=== PATIENT | female | born 1935 | race Caucasian/White ===

== ENCOUNTER → 2018-06-10 08:05 | Outpatient (CLI) | payer MEDICARE, OTHER, SELFPAY ==
--- NOTE | 2018-06-10 08:09 | DI.MRI.S_ITS ---
PROCEDURE: MR CERVICAL SPINE WO CON INDICATIONS: Neck pain status post cervical fusion TECHNIQUE: Noncontrast sagittal T1 spin echo and T2 fast spin echo, sagittal STIR, foraminal oblique sagittal T2 fast spin echo, and axial gradient echo or T2 fast spin echo through the cervical spine. COMPARISON: None. FINDINGS: Image quality: Excellent. Alignment and Curvature: There is mild anterolisthesis at C3-C4. Bone Marrow: Marrow demonstrates normal overall signal. Spinal Cord: Visualized spinal cord has normal size and signal. No cerebellar tonsillar herniation. Paraspinous Soft Tissues: No paravertebral masses. Prevertebral soft tissues are normal in thickness. Postoperative changes are seen, with anterior fixation hardware C4-C7. Prominent portions of the posterior elements have been removed. Disc spacers are seen throughout the fused region. There is associated susceptibility artifact. C2-C3: The disc height is well-preserved. Loss of disc signal is seen at this level. There is moderate left-sided facet hypertrophy seen. No neural foraminal or central canal narrowing are seen. C3-C4: Moderate loss of disc height is seen. Loss of disc signal is seen. There is moderate to prominent facet hypertrophy seen. There is moderate right-sided and moderate to severe left-sided neural foraminal narrowing seen. No significant central canal narrowing is seen. C4-C5: Postoperative changes are seen at this level. No neural foraminal or central canal narrowing are seen. C5-C6: There are postoperative changes at this level. Mild to moderate disc osteophyte complex is seen. Mild to moderate facet hypertrophy is seen. Moderate bilateral neural foraminal narrowing is seen. No central canal narrowing is seen. C6-C7: Postoperative changes are seen at this level. A mild degree of generalized disc osteophyte complex is seen. Mild facet joint hypertrophy is seen. Moderate bilateral neural foraminal narrowing is seen. No significant central canal narrowing is seen. C7-T1: The disc height is well-preserved. Loss of disc signal is seen at this level. A mild degree of generalized disc osteophyte complex is seen. Mild bilateral neural foraminal narrowing is seen. No significant central canal narrowing is seen. IMPRESSION: Extensive postoperative changes are seen, without a complication observed. Multiple levels of degenerative change are seen. Dictated by: Jah Niño M.D. on 06/10/2018 at 9:19 Approved by: Jah Niño M.D. on 06/10/2018 at 9:28
== END ==
PROVIDERS: PCP Internal Medicine; Visit Provider Physical Medicine & Rehabilitation
DX: M54.2 Cervicalgia (principal); M47.812 Spondylosis without myelopathy or radiculopathy, cervical region; Z98.1 Arthrodesis status
CPT/HCPCS: 72141

== ENCOUNTER → 2018-07-12 08:37 | Outpatient (CLI) | payer MEDICARE, OTHER, SELFPAY ==
--- NOTE | 2018-07-12 08:40 | DI.RAD.S_ITS ---
PROCEDURE: XR CERVICAL SPINE 4V OR 5V INDICATIONS: Neck pain status post cervical fusion TECHNIQUE: 5 views of the cervical spine acquired. COMPARISON: [facility], CR, XR CERVICAL SPIN LAT FL EX 3VW, 01/04/2016, 15:26. FINDINGS: Bones: No fractures or dislocations to the C7 level. Oblique images demonstrate no bony foraminal stenoses. Status post C4-C7 ACDF with interbody grafts. Hardware appears intact. Lucency adjacent to the bone metal interface of the screws, in particular at C7 and C6. This appears progressed since 01/04/16. Diffuse cervical spondylosis. Grade 1 anterolisthesis C3 and C4. No definite change in minimal C3-C4 disc space narrowing. Multilevel facet arthropathy. Mild to moderate C7-T1 and T1-T2 disc degeneration.Carotid atherosclerosis is noted, left greater than right. On the left, mild C3-C4 bony foraminal narrowing. On the right, no definite high-grade bony foraminal stenosis IMPRESSION: Status post C4-C7 ACDF with interbody grafts. Since 01/04/16 there is development of prominent lucencies at the bone metal interface of the screws, suggestive of hardware loosening or infection. Please correlate clinically. Diffuse cervical spondylosis and multilevel facet arthropathy. Grade 1 anterolisthesis of C3 on C4. Dictated by: Roderick Greco M.D. on 07/12/2018 at 9:28 Approved by: Roderick Greco M.D. on 07/12/2018 at 9:33
== END ==
PROVIDERS: PCP Internal Medicine; Visit Provider Physical Medicine & Rehabilitation
DX: M54.2 Cervicalgia (principal); M47.812 Spondylosis without myelopathy or radiculopathy, cervical region; M43.12 Spondylolisthesis, cervical region; Z98.1 Arthrodesis status
CPT/HCPCS: 72050; 99214

== ENCOUNTER → 2020-01-26 10:17 | Outpatient (CLI) | payer MEDICARE, OTHER, SELFPAY ==
--- NOTE | 2020-01-26 10:20 | DI.RAD.S_ITS ---
PROCEDURE: XR LUMBAR SPINE MIN 4V INDICATIONS: PAIN TECHNIQUE: 5 views of the lumbar spine were acquired. COMPARISON: None. FINDINGS: Bones: 5 nonrib-bearing vertebrae are present. There is grade 1 anterolisthesis of L4 on L5 and L5 on S1. Degenerative endplate changes and bilateral facet arthrosis at L3-4 through L5-S1 levels are seen. No vertebral body compression fractures. No suspicious bony lesions. Soft tissues: Overlying bowel gas pattern is normal. No suspicious soft tissue calcifications. Oblique images: No definite pars defects. Bilateral bony foraminal stenosis at L4-5 and L5-S1 levels are seen. IMPRESSION: Grade 1 anterolisthesis of L4 on L5 and L5 on S1. No definite pars defect is seen. Degenerative disc disease in mid to lower lumbar spine with suggestion of bilateral bony foraminal stenosis at L4-5 and L5-S1 levels. No acute compression fracture. Dictated by: Chi Miranda M.D. on 01/26/2020 at 13:34 Approved by: Chi Miranda M.D. on 01/26/2020 at 13:59
--- NOTE | 2020-01-26 10:20 | DI.RAD.S_ITS ---
PROCEDURE: XR CERVICAL SPINE 4V OR 5V INDICATIONS: pain TECHNIQUE: 5 views of the cervical spine acquired. COMPARISON: [facility], CR, XR CERVICAL SPINE 4V OR 5V, 07/12/2018, 8:42. FINDINGS: Bones: Patient is status post anterior fusion at C4 through C7 level. Grade 1 anterolisthesis of C3 on C4 is again seen unchanged from prior study. No acute compression fracture. Previously described increased radiolucency surrounding surgical screws particularly at C6 and C7 levels are again seen, not significantly changed from 2019 study. Oblique images demonstrate bilateral bony foraminal stenosis at C6-7 level. Soft tissues: No prevertebral soft tissue swelling. IMPRESSION: 1. Grade 1 anterolisthesis of C3 on C4 unchanged from prior study. No acute compression fracture or new area of spondylolisthesis. 2. Prior fusion of C4 through C7 vertebral bodies with persistent increased lucency surrounding fixation screws particularly at C6 and C7 levels concerning for hardware loosening. 3. Suggestion of mild bilateral bony foraminal stenosis at C6-7 level. Dictated by: Chi Miranda M.D. on 01/26/2020 at 13:29 Approved by: Chi Miranda M.D. on 01/26/2020 at 13:32
== END ==
PROVIDERS: PCP Internal Medicine; Referring Provider Internal Medicine; Visit Provider Physical Medicine & Rehabilitation
DX: M47.812 Spondylosis without myelopathy or radiculopathy, cervical region (principal); M43.12 Spondylolisthesis, cervical region; M48.02 Spinal stenosis, cervical region; M43.16 Spondylolisthesis, lumbar region; M43.17 Spondylolisthesis, lumbosacral region; M51.36 Other intervertebral disc degeneration, lumbar region; M17.10 Unilateral primary osteoarthritis, unspecified knee; Z98.1 Arthrodesis status
CPT/HCPCS: 72050; 72110; 99213

== ENCOUNTER → 2020-04-21 09:01 | Outpatient (CLI) | payer MEDICARE, OTHER, SELFPAY ==
--- NOTE | 2020-04-21 09:03 | DI.RAD.S_ITS ---
PROCEDURE: XR SHOULDER LT MIN 2V INDICATIONS: left shoulder pain TECHNIQUE: 3 views of the shoulder were acquired. COMPARISON: None. FINDINGS: Bones: No fracture. Severe AC and glenohumeral joint degeneration. Anatomic alignment. Soft tissues: No suspicious soft tissue calcifications. IMPRESSION: Severe left shoulder joint degeneration. Dictated by: Roderick Greco M.D. on 04/21/2020 at 11:02 Approved by: Roderick Greco M.D. on 04/21/2020 at 11:03
== END ==
PROVIDERS: PCP Internal Medicine; Referring Provider Physical Medicine & Rehabilitation; Visit Provider Physical Medicine & Rehabilitation
DX: M75.42 Impingement syndrome of left shoulder (principal); M17.10 Unilateral primary osteoarthritis, unspecified knee; M48.02 Spinal stenosis, cervical region; M43.16 Spondylolisthesis, lumbar region; M19.012 Primary osteoarthritis, left shoulder
CPT/HCPCS: 73030; 99213

== ENCOUNTER → 2023-02-01 12:59 | Outpatient (CLI) | payer MEDICARE, OTHER, SELFPAY ==
--- NOTE | 2023-02-01 13:01 | DI.RAD.S_ITS ---
PROCEDURE: XR LUMBAR SPINE MIN 4V INDICATIONS: low back bilateral hip pain TECHNIQUE: 5 views of the lumbar spine were acquired, including bilateral oblique views. COMPARISON: [facility], , XR LUMBAR SPINE MIN 4V, 01/26/2020, 10:10. FINDINGS: Bones: 5 nonrib-bearing vertebrae are present. Again seen is grade 1 anterolisthesis of L4 on L5 and L5 on S1. Diffusely decreased osseous mineralization. Facet arthropathy of the lower lumbar spine. Disc height loss is most pronounced at L4-5. No vertebral body compression fractures. No suspicious bony lesions. Soft tissues: Overlying bowel gas pattern is normal. No suspicious soft tissue calcifications. Atherosclerotic vascular calcifications. Oblique images: No definite pars defects. IMPRESSION: Again seen is grade 1 anterolisthesis of L4 on L5 and L5 on S1 without definite pars interarticularis defect. Degenerative changes of the lower lumbar spine. Dictated by: Fabián Swift M.D. on 02/01/2023 at 13:44 Approved by: Fabián Swift M.D. on 02/01/2023 at 13:46
== END ==
PROVIDERS: PCP Internal Medicine; Referring Provider Physical Medicine & Rehabilitation; Visit Provider Physical Medicine & Rehabilitation
DX: M25.551 Pain in right hip (principal); M25.552 Pain in left hip; M54.50 Low back pain, unspecified; M43.16 Spondylolisthesis, lumbar region
CPT/HCPCS: 72110

== ENCOUNTER → 2023-03-05 10:56 | Outpatient (CLI) | payer MEDICARE, OTHER, SELFPAY ==
--- NOTE | 2023-03-05 11:16 | DI.MRI.S_ITS ---
PROCEDURE: MR LUMBAR SPINE WO CON INDICATIONS: Spinal stenosis TECHNIQUE: Noncontrast sagittal T1 spin echo and T2 fast echo, sagittal STIR, and T2 fast spin echo through the lumbar spine. In cases with scoliosis, additional coronal T2 fast spin echo may be performed. COMPARISON: [facility], CR, XR LUMBAR SPINE MIN 4V, 02/01/2023, 13:08. FINDINGS: Image quality: Excellent. Alignment and Curvature: 7 mm anterolisthesis of L4 on L5. 6 mm anterolisthesis of L5 on S1. Bone Marrow: Marrow is of normal overall signal. No acute vertebral body compression fractures. Spinal Cord: Conus medullaris terminates at the L1-L2 level. Visualized cord demonstrates normal signal and size. Paraspinous Soft Tissues: No paravertebral masses. T12-L1: Minimal disc bulge. No canal stenosis or foraminal stenosis. L1-L2: Disc bulge. No canal stenosis or foraminal stenosis. L2-L3: Mild disc bulge. Mild facet hypertrophy. No canal stenosis or foraminal stenosis. L3-L4: Disc bulge. Facet and ligament hypertrophy. Mild canal stenosis. Mild bilateral foraminal stenosis. L4-L5: Anterolisthesis of L4 on L5 measures 7 mm. Posterior disc bulge. Prominent facet hypertrophy. Mild canal stenosis. Mild bilateral foraminal stenosis. L5: There is a prominent foot right-sided facet joint cyst in the canal, likely arising from the right L4-L5 facet joint, resulting in moderate canal stenosis at the level of L5. L5-S1: Anterolisthesis of L5 on S1 measures 6 mm. Posterior disc bulge. Exuberant facet hypertrophy. No canal stenosis. Mild right foraminal narrowing. Moderate to severe left foraminal narrowing with a mild degree of left L5 foraminal nerve root impingement. IMPRESSION: 1. Multilevel facet arthropathy, prominent at L4-L5 and L5-S1. 2. At the level of L3-L4 and L4-L5, there is mild canal stenosis. 3. At the level of L5, there is moderate canal stenosis secondary to a right-sided facet joint cyst, likely arising from the right L4-L5 facet joint. 4. There is moderate to severe left foraminal narrowing at L5-S1 with a mild degree of left L5 foraminal nerve root impingement. Dictated by: Jalil Grewal M.D. on 03/05/2023 at 19:00 Approved by: Jalil Grewal M.D. on 03/05/2023 at 19:08
== END ==
PROVIDERS: PCP Internal Medicine; Referring Provider Physical Medicine & Rehabilitation; Visit Provider Physical Medicine & Rehabilitation
DX: M43.16 Spondylolisthesis, lumbar region (principal); M47.816 Spondylosis without myelopathy or radiculopathy, lumbar region; M47.817 Spondylosis without myelopathy or radiculopathy, lumbosacral region; M48.061 Spinal stenosis, lumbar region without neurogenic claudication; M48.07 Spinal stenosis, lumbosacral region; M53.86 Other specified dorsopathies, lumbar region
CPT/HCPCS: 72148

== ENCOUNTER 2023-08-09 09:28 | Outpatient (CLI) | payer MEDICARE, OTHER, SELFPAY ==
[2023-08-09] VITALS (11 sets, daily range): BP systolic 131–193; BP diastolic 58–80; PULSE 49–58; RESP 12–22; TEMP 36.4; O2SAT 96–100
--- NOTE | 2023-08-09 10:15 | DI.RAD.S_ITS ---
PROCEDURE: PAIN L INTERLAMINAR/CAUDAL INJ INDICATIONS: radiculopathy COMPARISON: None. FINDINGS: Fluoroscopic spot filming was performed to verify placement of spinal needles at the L4-L5 level(s), as labeled on the films. Appropriate location(s) of the needle tip(s) was confirmed by injection of iodinated contrast. IMPRESSION: Fluoroscopic imaging provided for performance of an epidural steroid injection by the referring provider. Dictated by: Jalil Grewal M.D. on 08/09/2023 at 15:27 Approved by: Jalil Grewal M.D. on 08/09/2023 at 15:40
[2023-08-09] MEDS: MIDAZOLAM 2 MG/2 ML VIAL IV (11:03)
[2023-08-09] MEDS: iopamidoL 15 ML VIAL 3 ML INJ (11:14)
[2023-08-09] MEDS: BUPIVACAINE 0.25% (PF) VIAL 2 ML INJ (11:15)
[2023-08-09] MEDS: DEXAMETHASONE 10 MG/ML VIAL INJ (11:15)
[2023-08-09] MEDS: BETAMETHASONE 30 MG/5 ML MDV 6 MG INJ (11:15)
--- NOTE | 2023-08-09 11:22 | P.PCN_ITS ---
Date/Time/Diagnoses Date of procedure: 08/09/23 Time of procedure: 11:22 Pre-procedure diagnosis: 1. HNP WITH RADICULAR FEATURES, 2. MULTILEVEL CENTRAL STENOSIS, Post-procedure diagnosis: same Procedure Notes Procedure: 1. FLUOROSCOPICALLY GUIDED CONTRAST CONTROLLED INTERLAMINAR EPIDURAL STEROID INJECTION -L4/5 Indications: Leatha is referred by Dr. Cano for treatment of Bilateral Foraminal Stenosis R>L LE symptoms. Physician: Eduardo Torres Total Fluoroscopy time (seconds): 8 Total sedation minutes: 14 Complications: none Procedure in detail & Post-procedure care: FINDINGS Multilevel Central Spinal Stenosis with Nerve Root Compression DESCRIPTION OF PROCEDURE Fluoroscopically guided, contrast-controlled L4/5 translaminar epidural steroid injection. Following review of allergy and review of potential side effects and complications, including, but not necessarily limited to, infection, allergic reaction, local tissue breakdown, temporary as well as permanent nerve injury, paralysis, stroke and possible , the patient indicated that the patient understood and agreed to proceed. An informed consent document was signed by the patient, witnessed by a nurse, and placed in the patient's chart. Additionally, other treatment options including modalities, medications, and physical therapy were reviewed with the patient. After review of previous anaesthesic history and IV conscious sedation the patient was deemed safe to proceed with today?s procedure with IV conscious sedation as ASA class II designation. Safety time-out was performed to confirm patient ID, procedure to be performed and site of procedure. IV sedation was accomplished with a combination of 2mg of Versed was administered by the RN after DO order, titrated to patient comfort during the course of the procedure while the patient remained responsive to all verbal commands In the prone position, following sterile prep and drape of the lumbar region, the L4/5 translaminar space was identified fluoroscopically. The skin was anesthetized via a 25-gauge, 1.5inch needle with 1% lidocaine solution. At this point, a 22-gauge short bevel spinal needle was atraumatically introduced and a dvanced under fluoroscopic guidance into the region of the L4/5 translaminar space. Depth was confirmed on lateral view. Radiological data, including multiple fluoroscopic views of the lumbar spine, reveal a spinal needle at the L4/5 translaminar space. Lateral views then show placement of the needle in the epidural space. Subsequent views show contrast material flowing superiorly and inferiorly in the epidural space. No vascular or intrathecal uptake is observed. At this point, using loss of resistance technique with saline and air, the epidural space was entered. This was confirmed following negative aspiration with injection of approximately 1.5cc of Isovue 200, showing excellent epidural flow without vascular or intrathecal uptake. At this point, 1cc of 1% lidocaine solution combined with 2cc or 10mg of dexamethasone and 6mg betamethasone was injected without incident. The patient tolerated the procedure well without signs or symptoms of complications prior to transfer to the recovery area continued monitoring without incident. The patient was then transferred to the recovery area where they were observed for an appropriate period of time after the injection. The patient reported a VAS score of 6 prior to the procedure and a post- procedure VAS of 0. POST OP INSTRUCTIONS The patient was provided a Pain Log to continue to record their response to the target-specific procedure prior to follow-up visit with their referring physician. Additionally, specific post-injection care instructions and a contact number to our office were provided if concerns arise regarding possible complications associated with the procedure are suspected.
--- NOTE | 2023-08-09 12:26 | PC.NURSE ---
patient's dressing was reinforced on arrival to the recovery area. It was noticed that there was some drainage on her underwear. Dr. Torres was notified. patient was also quite sleepy, but her vital signs and breathing on room air were stable. Patient was kept until she was awake. She was awake and able to be discharged at 1209.
== END 2023-08-09 12:09 | disposition home or self-care (01) ==
LOC: RAD 09:29
PROVIDERS: PCP Internal Medicine; Referring Provider Physical Medicine & Rehabilitation; Visit Provider Physical Medicine & Rehabilitation
DX: M51.16 Intervertebral disc disorders with radiculopathy, lumbar region (principal); M48.061 Spinal stenosis, lumbar region without neurogenic claudication
CPT/HCPCS: 62323; 99152; J0702; J1100; J2250; J3490

== ENCOUNTER 2024-08-11 11:08 | Emergency (ER) | payer MEDICARE, OTHER, SELFPAY ==
[2024-08-11] VITALS (11 sets, daily range): BP systolic 110–142; BP diastolic 62–84; PULSE 63–85; RESP 17–26; O2SAT 92–97; BMI 27.1
--- NOTE | 2024-08-11 11:30 | DI.RAD.S_ITS ---
PROCEDURE: XR CHEST 1V INDICATIONS: Shortness of breath TECHNIQUE: One view of the chest was acquired. COMPARISON: None. FINDINGS: Surgical changes and devices: Partially identified cervical fusion hardware and surgical clips. Lungs and pleura: Mild pulmonary edema. No pleural effusions or pneumothorax. Mediastinum: Prominence of the pulmonary hilar regions. Cardiomegaly with moderate mitral valve calcifications. Bones and chest wall: No suspicious bony lesions. Overlying soft tissues appear unremarkable. IMPRESSION: 1. Mild CHF exacerbation with mitral valve calcifications. 2. Prominence of the pulmonary hilar regions, which may be secondary to pulmonary arterial hypertension. Dictated by: Riki Mcmahon M.D. on 08/11/2024 at 12:19 Approved by: Riki Mcmahon M.D. on 08/11/2024 at 12:20
--- NOTE | 2024-08-11 11:31 | EKG_ITS ---
[address] [address] Test Date: 2024-08-11 Pat Name: Leatha Kapoor Department: Room: Gender: Female Medical Massage Therapist: ANGELES : [id number] Requested By: Order Number: [id number] Reading MD: Gilbert Fonseca Measurements Intervals [place] Rate: 72 P: 80 GA: 154 QRS: 33 QRSD: 134 T: -40 QT: 452 QTc: 494 Interpretive Statements Normal sinus rhythm Right bundle branch block T wave abnormality, consider inferior ischemia Electronically Signed On 08-11-2024 15:41:54 PDT by Gilbert Fonseca
--- NOTE | 2024-08-11 11:38 | DI.RAD.S_ITS ---
PROCEDURE: XR FOOT LT MIN 3V INDICATIONS: fall this week. Also had object fall on foot/ankle. TECHNIQUE: 3 views of the foot were acquired. COMPARISON: None. FINDINGS: Diffuse osseous demineralization. No acute fracture or dislocation. Mild hallux valgus with lateralization of the hallux sesamoids. Scattered midfoot osteoarthritis. The Lisfranc interval is preserved on the nonweightbearing view. Cortical hyperostosis of the 2nd metatarsal distal shaft. IMPRESSION: Second metatarsal distal shaft cortical hyperostosis, which may be secondary to a subacute versus chronic stress fracture. Otherwise, no acute fracture or dislocation. Dictated by: Riki Mcmahon M.D. on 08/11/2024 at 12:20 Approved by: Riki Mmcahon M.D. on 08/11/2024 at 12:22
--- NOTE | 2024-08-11 11:38 | DI.RAD.S_ITS ---
PROCEDURE: XR ANKLE LT MIN 3V INDICATIONS: fall this week. Also had object fall on foot/ankle. TECHNIQUE: 3 views of the ankle were acquired. COMPARISON: None. FINDINGS: Diffuse osseous demineralization. No acute fracture or dislocation. The ankle mortise is preserved on the nonweightbearing view. No talar dome osteochondral defect. Scattered midfoot osteoarthritis. No significant tibiotalar joint effusion. Faint vascular calcifications. IMPRESSION: No acute fracture or dislocation of the left ankle. Dictated by: Riki Mcmahon M.D. on 08/11/2024 at 12:22 Approved by: Riik Mcmahon M.D. on 08/11/2024 at 12:22
--- NOTE | 2024-08-11 11:51 | ED_ITS ---
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 Presents with complaint of increasing shortness of breath since Sunday. Patient states no orthopnea. She was appreciates exertional dyspnea. No fevers no chills no cold cough or congestion symptoms. No nausea or vomiting. She was some swelling in her toes and some bruising where she was dropped a bottle of shampoo on her foot she states it was pretty heavy because it was full. Has been painful to weightbear but she has been able to. Denies any nausea or vomiting no issues with the urination or bowel movements. She had an aspirin 81 mg daily she knows she was stopped her lisinopril because her blood pressure was too low, she was unsure if she was still on her Lasix. She states they decreased 1 of her medications by half. Patient states she continues take medications including a statin, denies any residual affects from a prior stroke. Prior cervical laminectomy, hysterectomy, hernia repair and bladder surgeries x3. Reports an allergy to penicillin which she gets hives but states she can take amoxicillin. Former tobacco user, no alcohol, no recreational drugs. Dr. Gregory Cano is her primary care physician she does not follow regularly with Cardiology but has seen them in the past. Related Data Home Medications Medication Instructions Recorded Confirmed acyclovir 800 mg tablet 800 mg PO TID PRN 05/30/18 04/02/24 ascorbic acid (vitamin C) 1,000 mg 1 gram PO DAILY 05/30/18 04/02/24 tablet aspirin 81 mg chewable tablet 81 mg PO DAILY 05/30/18 04/02/24 atorvastatin 20 mg tablet 20 mg PO BEDTIME 05/30/18 04/02/24 betamethasone dipropionate 0.05 % 1 applictn topical DAILY PRN 05/30/18 04/02/24 topical ointment calcium 500 mg (as 1 tab PO BID 05/30/18 04/02/24 carbonate)-vitamin D3 3.125 mcg (125 unit) tablet (Calcium) cholecalciferol (vitamin D3) 50 2,000 unit PO DAILY 05/30/18 04/02/24 mcg (2,000 unit) capsule citalopram 10 mg tablet 10 mg PO BEDTIME Depression 05/30/18 04/02/24 furosemide 20 mg tablet 20 mg PO DAILY 05/30/18 04/02/24 ketoconazole 2 % topical cream 1 applictn topical .prn 05/30/18 04/02/24 latanoprost 0.005 % eye drops EYE-BOTH QPM 05/30/18 04/02/24 lisinopril 20 mg tablet 20 mg PO DAILY 05/30/18 04/02/24 mecobalamin (vitamin B12) 5,000 mcg PO 05/30/18 04/02/24 mcg disintegrating tablet omeprazole 20 mg capsule,delayed 20 mg PO DAILY 05/30/18 04/02/24 release potassium PO DAILY 05/30/18 04/02/24 lisinopril 10 mg tablet 10 mg PO DAILY 02/19/23 04/02/24 nitrofurantoin macrocrystal 100 mg 100 mg PO DAILY 02/19/23 04/02/24 capsule Previous Rx's Medication Instructions Recorded Disabled Parking Permit #1 ea 11/30/20 gabapentin 100 mg capsule 100 mg PO DAILY #90 caps 02/19/23 furosemide 20 mg tablet (Lasix) 20 mg PO DAILY #5 tabs 08/11/24 tramadol 50 mg tablet 50 mg PO BID #60 tabs 08/11/24 Allergies Allergy/AdvReac Type Severity Reaction Status Date / Time Penicillins AdvReac Hives Verified 10/17/23 09:57 shellfish derived AdvReac hives Verified 10/17/23 09:57 strawberry AdvReac hives Verified 10/17/23 09:57 Review of Systems Review of Systems ROS Unobtainable: All systems reviewed & are unremarkable except as noted in HPI and below Patient History Medical History CVA (cerebral vascular accident) Mild concussion Impingement syndrome of left shoulder Degenerative joint disease of knee Restless leg syndrome Surgical History Status post left foot surgery History of cervical spinal surgery History of bladder suspension procedure History of hysterectomy Family History Unknown Family history not known due to adoption Social History Smoking Status: Never smoker Smoking Status: Never smoker Exam Narrative Exam Narrative: GENERAL: Alert and oriented x three, elderly female in mild distress HEENT: Head normocephalic, atraumatic, EOMI, pupils reactive, face symmetric, moist mucous membranes NECK: Supple, full range of motion CARDIOVASCULAR: Regular rate and rhythm positive for ejection murmur heard at the left back as well as left upper sternal border. No rubs or gallops. No edema bilateral lower extremities. No JVD. RESPIRATORY: Breath sounds equal bilaterally, no wheezes rales or rhonchi. ABDOMEN: Soft, nontender. Normoactive bowel sounds all 4 quadrants. No guarding or rebound, rigidity, no mass : No CVA tenderness EXTREMITIES: Normal range of motion, no clubbing. Patient has a ecchymosis of her toes on the left foot, nontender over the toes but does have tenderness over the 2nd metatarsal no ecchymosis in that area. There is some minimal swelling. No warmth erythema, no lacerations or other abrasions. No other bony tenderness to the left foot or ankle. Neurovascularly intact NEUROLOGICAL: Cranial nerves II through XII grossly intact. Moving all extremities SKIN: Warm, dry, no petechiae, no rashes or lesions. Initial Vital Signs Initial Vital Signs: Vital Signs Pulse Rate 85 08/11/24 11:27 Respiratory Rate 18 08/11/24 11:27 Blood Pressure 142/79 H 08/11/24 11:27 Pulse Oximetry 97 08/11/24 11:27 Oxygen Delivery Method Room Air 08/11/24 11:27 Course Orders Ordered: ED Orders 08/11/24 11:30 XR chest 1V Stat EKG-12 Lead Stat Measure peak expiratory flow ONCE RT Consult Eval and Treat NOW 08/11/24 11:35 Complete Blood Count AUTO DIFF Stat Comprehensive Metabolic Panel Stat Lactate (Lactic Acid) Stat NT-proBNP (BNP-Adult 18+) Stat Prothrombin Time INR Stat Troponin I Stat 08/11/24 11:38 XR ankle LT min 3V Stat XR foot LT min 3V Stat 08/11/24 13:27 Trop I [Troponin I] Stat Discontinued Medications Furosemide (Furosemide 40 Mg/4 Ml Vial) 40 mg IV NOW ONE Stop: 08/11/24 13:03 Last Admin: 08/11/24 13:29 Dose: 40 mg Documented By: CTS Vital Signs Vital signs: Vital Signs - 8 hr 08/11/24 11:27 08/11/24 11:30 08/11/24 11:30 Pulse Rate 85 74 Respiratory Rate 18 Blood Pressure 142/79 H 136/84 Pulse Oximetry 97 96 Oxygen Delivery Method Room Air Room Air 08/11/24 12:00 08/11/24 12:00 08/11/24 12:30 Pulse Rate 69 Respiratory Rate 22 Blood Pressure 132/76 118/69 Pulse Oximetry 92 Oxygen Delivery Method 08/11/24 12:30 08/11/24 13:00 08/11/24 13:00 Pulse Rate 65 67 Respiratory Rate 20 25 H Blood Pressure 119/68 Pulse Oximetry 93 94 Oxygen Delivery Method 08/11/24 13:30 08/11/24 13:30 08/11/24 14:00 Pulse Rate 66 Respiratory Rate 23 Blood Pressure 124/75 112/70 Pulse Oximetry 95 Oxygen Delivery Method 08/11/24 14:00 08/11/24 14:11 08/11/24 14:11 Pulse Rate 63 75 Respiratory Rate 20 22 Blood Pressure 126/74 Pulse Oximetry 92 93 Oxygen Delivery Method 08/11/24 14:30 08/11/24 14:30 08/11/24 14:44 Pulse Rate 63 Respiratory Rate 20 Blood Pressure 110/62 112/65 Pulse Oximetry 93 Oxygen Delivery Method 08/11/24 14:44 08/11/24 15:00 Pulse Rate 67 66 Respiratory Rate 26 H 17 Blood Pressure Pulse Oximetry 94 Oxygen Delivery Method Room Air MDM - SOB/Dyspnea Lab Data 08/11/24 11:35 08/11/24 11:35 Labs: Lab Results 08/11/24 08/11/24 Range/Units 11:35 13:27 WBC 6.4 (4.5-11.0) X10^3/uL RBC 4.39 (4.0-5.2) X10^6/uL Hgb 12.7 (12.0-16.0) g/dL Hct 38.5 (36-46) % MCV 87.6 (80-100) fL MCH 28.8 (26-34) PG MCHC 32.9 (30-36) % RDW 15.0 H (11.6-14.8) % Plt Count 143 L (150-400) X10^3/uL Neut % (Auto) 55.7 (50-75) % Lymph % (Auto) 30.3 (25-40) % Davie % (Auto) 8.5 (3-14) % Eos % (Auto) 4.1 H (2-4) % Baso % (Auto) 1.4 (0-2) % Neut # (Auto) 3500 (2536-6707) /uL Lymph # (Auto) 1900 (2843-8021) /uL Davie # (Auto) 500 (0-900) /uL Eos # (Auto) 300 (0-450) /uL Baso # (Auto) 100 (0-100) /uL PT 13.2 H (9.4-12.5) SECONDS INR 1.2 (0.9-1.3) Sodium 140 (137-145) mmol/L Potassium 3.8 (3.4-5.1) mmol/L Chloride 104 (98-107) mmol/L Carbon Dioxide 31 (22-32) mmol/L BUN 23 H (7-17) mg/dL Creatinine 0.66 (0.52-1.04) mg/dL Estimated GFR > 60 (>60) mL/min BUN/Creatinine Ratio 34.8 H (6-22) Glucose 118 H (80-110) mg/dL Lactate 1.1 (0.7-2.1) mmol/L Calcium 9.8 (8.4-10.2) mg/dL Total Bilirubin 1.1 (0.2-1.3) mg/dL AST 44 H (14-36) IU/L ALT 35 H (<35) IU/L Alkaline Phosphatase 86 (38-126) U/L Troponin I 0.040 H 0.033 (0.01-0.034) ng/mL NT-Pro-B Natriuret Pep 4730 H (<450) pg/mL Total Protein 7.4 (6.3-8.2) g/dL Albumin 4.2 (3.5-5.0) g/dL Globulin 3.2 (1.7-4.1) g/dL Albumin/Globulin Ratio 1.3 (1.0-2.8) ECG Data Attestation: I personally reviewed and interpreted this ECG as follows: Prior ECG tracings: not available for review Interpretation: Sinus rhythm rate of 72, right bundle-branch block, LA 154, QRS of 134 QTC of 494. No priors for comparison. MDM Narrative Medical decision making narrative: Labs show white count of 6.4 hemoglobin of 12 platelets of 143 no priors for comparison, INR is 1.2 BUN 23 creatinine is normal at 0.66 electrolytes are otherwise appropriate glucose is 118 lactate 1.1 AST ALT are mildly elevated 44 and 35, troponins indeterminate 0.04 with no priors for comparison BNP is 4730. Also no priors for comparison. Repeat troponin is improved at 0.033. EKG shows sinus rhythm, right bundle-branch block, no priors for comparison. Chest x-ray, mild pulmonary edema no pleural effusions or pneumothorax, prominence of pulmonary hilar regions cardiomegaly with moderate mitral valve calcifications, mild CHF exacerbation with mitral valve calcifications on impression prominence maybe secondary to pulmonary arterial hypertension. Ankle x-ray shows no acute fracture or dislocation. Foot x-ray shows 2nd metatarsal distal shaft cortical hyperostosis maybe secondary to subacute versus chronic stress fracture. Discussed with the patient unclear if she was still taking her Lasix she has stopped her lisinopril and noted it may has been decreased. We will give a course for several days and have her follow up. I do appreciate a murmur on exam she does not have prior and EKGs but would encourage her to follow up with primary care for further workup and possibly ECHO if murmur is new. Patient has been ambulating without issue. We will also treat as her x-ray shows what sounds like a 2nd metatarsal fracture with ortho shoe, weight-bearing as tolerated and follow up with Orthopedic surgery. Discharge Plan Departure Patient Disposition: Home Clinical Impression: Acute exacerbation of CHF (congestive heart failure), Closed fracture of second metatarsal bone Instructions: DI for Heart Failure, DI for Foot Fracture Activity Restrictions/Additional Instructions: Follow up with your physician for recheck, you appear to be in congestive heart failure please check your home medications and see if you are continuing on Lasix or furosemide daily. Please take the prescription you have been given today for the next 3 days. A prescription was sent to [facility] in [place]. On exam I do hear a murmur, talk with your physician they may have heard this in the past but if that is new you should follow up and have an ECHO. Follow up with Orthopedic surgery, you do have a 2nd metatarsal fracture in your left foot. Use the ortho shoe until you follow-up. You may weightbear as tolerated Splint Care: Keep splint clean and dry. Elevated affected body part to decrease swelling. OK to use ice pack on the affected body part. Use for 15-20 minutes each time, for 5-6x per day. If you develop worsening pain, numbness, tingling, discoloration of the affected body part, just the ortho shoe, and either see your doctor for an urgent re-assessment, or return to the Emergency Department. Return to the Emergency Department for any new or worsening symptoms, new chest pain, increased shortness of breath, lightheadedness or passing out, new swelling of your extremities, fevers or other new or concerning changes. Prescriptions: New furosemide [Lasix] 20 mg tablet 20 mg PO DAILY Qty: 5 0RF No Action (DME) Disabled Parking Permit See Rx Instructions .ROUTE .MEDSUPPLY Qty: 1 0RF Rx Instructions: Patient qualifies for disabled parking as per the attached form. tramadol 50 mg tablet 50 mg PO BID Qty: 60 2RF Rx Instructions: Take one tablet by mouth up to three times a day as needed for pain. latanoprost 0.005 % drops EYE-BOTH QPM atorvastatin 20 mg tablet 20 mg PO BEDTIME citalopram 10 mg tablet 10 mg PO BEDTIME lisinopril 20 mg tablet 20 mg PO DAILY acyclovir 800 mg tablet 800 mg PO TID PRN omeprazole 20 mg capsule,delayed release(DR/EC) 20 mg PO DAILY aspirin 81 mg tablet,chewable 81 mg PO DAILY furosemide 20 mg tablet 20 mg PO DAILY ketoconazole 2 % cream 1 applictn TOP .prn betamethasone dipropionate 0.05 % ointment 1 applictn TOP DAILY PRN mecobalamin (vitamin B12) 5,000 mcg tablet,disintegrating PO potassium 10 mEq PO DAILY ascorbic acid (vitamin C) 1,000 mg tablet 1 gram PO DAILY calcium carbonate-vitamin D3 [Calcium 500 + D (D3)] 500 mg(1,250mg) -125 unit tablet 1 tab PO BID cholecalciferol (vitamin D3) 2,000 unit capsule 2,000 unit PO DAILY nitrofurantoin macrocrystal 100 mg capsule 100 mg PO DAILY lisinopril 10 mg tablet 10 mg PO DAILY gabapentin 100 mg capsule 100 mg PO DAILY Qty: 90 2RF Referrals: Gregory Cano MD [Primary Care Provider] - Waldo Jj MD [Physician] - Stand Alone Forms: Patient Portal/API/Survey
[2024-08-11 11:55] LABS: Add Manual Diff / Slide Review NO; Basophils Absolute Auto 100 /uL (0-100); Basophils Percent Auto 1.4 % (0-2); Eosinophils Absolute Auto 300 /uL (0-450); Eosinophils Percent Auto 4.1 % (2-4); Hematocrit 38.5 % (36-46); Hemoglobin 12.7 g/dL (12.0-16.0); Lymphocytes Absolute Auto 1900 /uL (1100-4500); Lymphocytes Percent Auto 30.3 % (25-40); Mean Corpuscular HGB Conc 32.9 % (30-36); Mean Corpuscular Hemoglobin 28.8 PG (26-34); Mean Corpuscular Volume 87.6 fL (80-100); Monocytes Absolute Auto 500 /uL (0-900); Monocytes Percent Auto 8.5 % (3-14); Neutrophils Absolute Auto 3500 /uL (1500-7000); Neutrophils Percent Auto 55.7 % (50-75); Platelet Count 143 X10^3/uL (150-400); Red Blood Cell Count 4.39 X10^6/uL (4.0-5.2); White Blood Cell Count 6.4 X10^3/uL (4.5-11.0)
[2024-08-11 11:56] LABS: INR 1.2 (0.9-1.3); Prothrombin Time 13.2 SECONDS (9.4-12.5)
[2024-08-11 12:01] LABS: Alanine Aminotransferase 35 IU/L (<35); Albumin 4.2 g/dL (3.5-5.0); Albumin Globulin Ratio 1.3 (1.0-2.8); Alkaline Phosphatase 86 U/L (38-126); Aspartate Aminotransferase 44 IU/L (14-36); BUN Creatinine Ratio 34.8 (6-22); Bilirubin Total 1.1 mg/dL (0.2-1.3); Blood Urea Nitrogen 23 mg/dL (7-17); Calcium 9.8 mg/dL (8.4-10.2); Carbon Dioxide 31 mmol/L (22-32); Chloride 104 mmol/L (98-107); Estimated Glomerular Filt Rate > 60 mL/min (>60); Globulin 3.2 g/dL (1.7-4.1); Glucose 118 mg/dL (80-110); HEMOLYSIS < 15 (0-50); Lactate (Lactic Acid) 1.1 mmol/L (0.7-2.1); Potassium 3.8 mmol/L (3.4-5.1); Sodium 140 mmol/L (137-145); Total Protein 7.4 g/dL (6.3-8.2)
[2024-08-11 12:12] LABS: NT-proBNP (BNP-Adult 18+) 4730 pg/mL (<450)
[2024-08-11] MEDS: FUROSEMIDE 40 MG/4 ML VIAL IV (13:29)
[2024-08-11 14:01] LABS: Troponin I 0.033 ng/mL (0.01-0.034)
== END 2024-08-11 15:15 | disposition home or self-care (01) ==
PROVIDERS: Emergency Provider Emergency Medicine; PCP Internal Medicine
DX: I11.0 Hypertensive heart disease with heart failure (principal); I50.9 Heart failure, unspecified; I45.10 Unspecified right bundle-branch block; S92.322A Displaced fracture of second metatarsal bone, left foot, initial encounter for closed fracture; W20.8XXA Other cause of strike by thrown, projected or falling object, initial encounter
CPT/HCPCS: 36415; 71045; 73610; 73630; 80053; 83605; 83880; 84484; 85025; 85610; 93005; 96374; 99284; J1938